=== PATIENT | male | born 1990 | race Caucasian/White ===

== ENCOUNTER → 2018-03-09 | Outpatient (CLI) | payer BC ==
--- NOTE | 2018-03-09 15:08 | CT ---
EXAMINATION TYPE: CT abdomen pelvis wo con DATE OF EXAM: 03/09/2018 COMPARISON: HISTORY: bilateral flank pain CT DLP: 1143.6 mGycm Automated exposure control for dose reduction was used. TECHNIQUE: Helical acquisition of images was performed from the lung bases through the pelvis. FINDINGS: LUNG BASES: No significant abnormality is appreciated. LIVER/GB: Hepatic parenchyma is diffusely hypoattenuated in comparison to that of the spleen, most co mmonly seen in hepatic steatosis. This finding limits evaluation for hepatic masses. No gross evidenc e of hepatic mass is seen. No intrahepatic biliary ductal dilatation. Liver is enlarged. No cholelith iasis . PANCREAS: No significant abnormality is seen. SPLEEN: Spleen is enlarged measuring 16.0 cm in craniocaudal dimension. ADRENALS: No significant abnormality is seen. KIDNEYS: No hydronephrosis or nephrolithiasis. FREE AIR: No free air is visualized REPRODUCTIVE ORGANS: No significant abnormality is seen URINARY BLADDER: No calculi are seen within the urinary bladder. ADENOPATHY: No greater than 1 cm short axis with nodes are seen within the abdomen or pelvis. Evalua tion is limited without contrast. OSSEOUS STRUCTURES: No significant abnormality is seen. BOWEL: Moderate amount retained fecal debris is seen within the colon. Appendix is not clearly visua lized however there are no right lower quadrant fat stranding changes. Few sigmoid diverticula are pr esent without pericolonic fat stranding. No dilated large or small bowel. IMPRESSION: 1. HEPATOSPLENOMEGALY AND AT LEAST MODERATE GRADE HEPATIC STEATOSIS. 2. MODERATE BURDEN COLONIC FECAL STASIS. 3. NO EVIDENCE OF HYDRONEPHROSIS OR NEPHROLITHIASIS. APPENDIX IS NOT CLEARLY VISUALIZED HOWEVER NO RI GHT LOWER QUADRANT FAT STRANDING IS SEEN.
== END | disposition home or self-care (01) ==
LOC: RADCTMAIN 14:40
PROVIDERS: ATTEND Family Medicine
DX: K76.0 Fatty (change of) liver, not elsewhere classified (principal); R16.2 Hepatomegaly with splenomegaly, not elsewhere classified
CPT/HCPCS: 74176